=== PATIENT | female | born 1950 | race Caucasian/White ===

== ENCOUNTER 2018-04-23 07:25 | Outpatient (CLI) | payer OTHER ==
[~2018-04-23 07:25] MED LIST: DICLOFENAC POTA50 MG PO; FLEXERIL10 MG PO
== END 2018-04-23 07:39 | disposition home or self-care (01) ==
LOC: TOM 07:25
DX: K63.5 Polyp of colon (principal)

== ENCOUNTER 2018-11-16 07:30 | Outpatient (CLI) | payer OTHER ==
[~2018-11-16] VITALS: Ht 152.4 cm; Wt 71.2 kg
== END 2018-11-16 12:39 | disposition home or self-care (01) ==
LOC: OFIC 805 07:30
DX: J31.0 Chronic rhinitis (principal); J32.8 Other chronic sinusitis; J34.2 Deviated nasal septum; J34.3 Hypertrophy of nasal turbinates; J31.2 Chronic pharyngitis; K21.9 Gastro-esophageal reflux disease without esophagitis

== ENCOUNTER 2019-04-24 09:25 | Outpatient (CLI) | payer OTHER | END 2019-04-24 09:28 | disposition home or self-care (01) | LOC: RAD 09:25 | DX: M25.561 Pain in right knee (principal) ==

== ENCOUNTER 2020-08-28 14:59 | Outpatient (CLI) | payer OTHER | END 2020-08-28 15:48 | disposition home or self-care (01) | LOC: TOM 14:59 | DX: N20.0 Calculus of kidney (principal); N20.1 Calculus of ureter; K76.0 Fatty (change of) liver, not elsewhere classified ==

== ENCOUNTER 2021-08-23 09:41 | Outpatient (CLI) | payer OTHER | END 2021-08-23 09:44 | disposition home or self-care (01) | LOC: TOM 09:41 | PROVIDERS: ATTEND Orthopaedic Surgery | DX: M16.12 Unilateral primary osteoarthritis, left hip (principal) ==

== ENCOUNTER 2021-11-25 10:04 | Outpatient (CLI) | payer OTHER | END 2021-11-25 10:09 | disposition home or self-care (01) | LOC: LAB 10:04 | PROVIDERS: ATTEND Orthopaedic Surgery | DX: E55.9 Vitamin D deficiency, unspecified (principal); M85.9 Disorder of bone density and structure, unspecified; E56.1 Deficiency of vitamin K ==

== ENCOUNTER 2022-02-21 08:21 | Outpatient (CLI) | payer OTHER | END 2022-02-21 08:22 | disposition home or self-care (01) | LOC: LAB 08:21 | PROVIDERS: ATTEND Orthopaedic Surgery | DX: D64.9 Anemia, unspecified (principal); Z76.89 Persons encountering health services in other specified circumstances; I10 Essential (primary) hypertension; E88.9 Metabolic disorder, unspecified; D68.8 Other specified coagulation defects; N39.0 Urinary tract infection, site not specified; E11.9 Type 2 diabetes mellitus without complications ==

== ENCOUNTER 2022-03-02 10:00 | Inpatient (IN) | payer OTHER ==
[~2022-03-02] VITALS: Ht 157.5 cm; Wt 68.0 kg
[2022-03-02] MEDS ORDERED: JANU PO (13:17)
[2022-03-02] MEDS ORDERED: SIMVAST PO (13:18)
[2022-03-02] MEDS ORDERED: NORVASC10 MG PO (13:18)
[2022-03-02] MEDS ORDERED: IRBESAR PO (13:18)
[2022-03-08] MEDS ORDERED: FAMOTIDINE20 MG (15:00)
[2022-03-08] MEDS ORDERED: GABAPENTIN300 M2 (15:02)
[2022-03-08] MEDS ORDERED: IRBESARTAN-HCT1 EAC1 (15:02)
[2022-03-08] MEDS ORDERED: XARELTO10 M1 (15:02)
[2022-03-08] MEDS ORDERED: MELOXICAM15 MG (15:03)
[2022-03-08] MEDS ORDERED: JANUMET XR 1001 EACH (15:03)
[2022-03-08] MEDS ORDERED: LEVOCETIRIZINE D5 MG (15:03)
[2022-03-08] MEDS ORDERED: TERBINAFINE HC250 MG (15:03)
[2022-03-08] MEDS ORDERED: SIMVASTATIN20 MG (15:03)
== END 2022-03-11 15:01 | DRG 470 ==
LOC: SURG 03-08 07:00 → SURH 03-08 08:50 → O/R 03-08 08:50 → SURG 03-08 10:00 → SURH 03-08 17:21
PROVIDERS: ADMIT Orthopaedic Surgery; ATTEND Orthopaedic Surgery
PROC: 0SRC0JZ Replacement of Right Knee Joint with Synthetic Substitute, Open Approach (ICD-10-PCS; principal; 2022-03-08 07:00)
DX: M16.12 Unilateral primary osteoarthritis, left hip (principal); I10 Essential (primary) hypertension; Z96.642 Presence of left artificial hip joint; Z20.822 Contact with and (suspected) exposure to COVID-19; E11.9 Type 2 diabetes mellitus without complications

== ENCOUNTER 2022-09-07 06:00 | Day surgery (SDC) | payer OTHER ==
[~2022-09-07 06:00] MED LIST changes: +FAMOTIDINE20 MG; +GABAPENTIN300 M2; +IRBESAR PO; +IRBESARTAN-HCT1 EAC1; +JANU PO; +JANUMET XR 1001 EACH; +LEVOCETIRIZINE D5 MG; +MELOXICAM15 MG; +NORVASC10 MG PO; +SIMVAST PO; +SIMVASTATIN20 MG; +TERBINAFINE HC250 MG; +XARELTO10 M1
== END 2022-09-07 11:00 | disposition home or self-care (01) ==
LOC: CIR.AMB 06:00
PROVIDERS: ATTEND Surgery Surgery of the Hand
DX: M65.842 Other synovitis and tenosynovitis, left hand (principal); Z20.822 Contact with and (suspected) exposure to COVID-19

== ENCOUNTER 2023-03-22 05:45 | Day surgery (SDC) | payer OTHER ==
[~2023-03-22 05:45] MED LIST changes: +ACID REDUCER20 M1 PO; +ZYLOPRIM100 M1 PO
[2023-03-22] MEDS ORDERED: CEFAZOLIN SODIUM 1,000 MG VIAL ONE (07:13)
[2023-03-22] MEDS ORDERED: BUPIVACAINE HCL/PF 0.5% 30ML ML ONE (07:46)
[2023-03-22] MEDS ORDERED: LIDOCAINE HCL 20 MG/1 ML VIAL 20ML ONE (07:48)
[2023-03-22] MEDS ORDERED: TRIAMCINOLONE ACETONIDE 40 MG/ML VIAL ONE (07:56)
[2023-03-22] MEDS ORDERED: BUPIVACAINE HCL/PF 0.5% 5MG/ML VIAL IJ ONE (08:15)
[2023-03-22] MEDS ORDERED: LIDOCAINE HCL IJ ONE (08:15)
[2023-03-22] MEDS ORDERED: TRIAMCINOLONE ACETONIDE 40 MG/ML VIAL IJ ONE (08:15)
[2023-03-22] MEDS ORDERED: BACITRACIN 28.35 GM OINT.TUBE TOP ONE (08:15)
[2023-03-22] MEDS ORDERED: CEFAZOLIN SODIUM 1,000 MG VIAL IV ONE (08:15)
== END 2023-03-22 11:00 | disposition home or self-care (01) ==
LOC: CIR.AMB 05:45
PROVIDERS: ATTEND Surgery Surgery of the Hand
DX: M65.841 Other synovitis and tenosynovitis, right hand (principal); Z20.822 Contact with and (suspected) exposure to COVID-19

== ENCOUNTER 2024-11-13 09:00 | Day surgery (SDC) | payer OTHER ==
[~2024-11-13 09:00] MED LIST changes: +metoprolol
[2024-11-13] MEDS ORDERED: CEFAZOLIN SODIUM 1,000 MG VIAL ONE (10:13)
[2024-11-13] MEDS ORDERED: LIDOCAINE HCL 1% 20 ML VIAL IJ ONE (11:58)
== END 2024-11-13 14:00 | disposition home or self-care (01) ==
LOC: CIR.AMB 09:00
PROVIDERS: ATTEND Surgery Surgery of the Hand
DX: M67.844 Other specified disorders of tendon, left hand (principal)